=== PATIENT | male | born 1960 | race Caucasian/White ===

== ENCOUNTER 2022-08-08 08:49 | Inpatient (IN) | payer BC ==
[2022-08-08 09:31] LABS: Absolute Lymphocytes (CBC) 1.5 K/uL (0.7-4.9); Hematocrit 45.2 % (39.6-49.0); Lymphocytes % 26.5 % (15.3-44.8); MCV 74.1 fL (80-100); MPV 6.5 fL (7.6-11.3)
[2022-08-08 09:33] LABS: SARS-CoV-2 Antigen Rapid Res Negative (Negative)
[2022-08-08 09:34] LABS: Protime INR 1.06
--- NOTE | 2022-08-08 09:38 | RAD REPORT ---
EXAM DESCRIPTION: RAD - Chest Single View - 08/08/2022 9:16 am CLINICAL HISTORY: CHEST PAIN COMPARISON: None TECHNIQUE: AP portable chest image was obtained 08/08/2022 9:16 am . FINDINGS: Lungs are clear. Heart and vasculature are normal. No measurable pleural effusion and no p neumothorax. No acute bony abnormality seen. No acute aortic findings suspected. IMPRESSION: No acute cardiopulmonary process. Shallow inspiration, portable technique and large body habitus limit evaluation.
[2022-08-08 09:49] LABS: Albumin 3.4 g/dL (3.4-5.0); Bilirubin Direct 0.2 mg/dL (0-0.2); Bilirubin Total 0.5 mg/dL (0.2-1.0); Magnesium 1.7 mg/dL (1.8-2.4); Potassium 3.8 mmol/L (3.5-5.1); Protein, Total 6.8 g/dL (6.4-8.2)
[2022-08-08 09:53] LABS: Troponin High Sensitivity 2589.7 pg/mL (<58.9)
--- NOTE | 2022-08-08 10:13 | EDPHYS ---
Physician Documentation [facility] Name: Henrik Baker Age: 61 yrs Sex: Male : 1960 Arrival Date: 08/08/2022 Time: 08:52 Bed 18 Private MD: Oracoi Duncan ED Physician Anthony Winston HPI: 08/08 09:02 This 61 yrs old Male presents to ER via Ambulatory with complaints of Arm Pain, [facility] Shoulder Pain. 09:02 This is a 61 year old male with a history of htn, hypothyroidism, dm that presents to [facility] the ED with complaints of left sided chest pain, arm pain, and left scapular pain which awoke him around 430 am this morning. Patient states he then took 6 81 mg aspirin. Patient does not currently have pain. Pain is not reproduceable. . Historical: - Allergies: 08:57 NKDA; tw2 - Home Meds: :57 Tresiba FlexTouch U-100 100 unit/mL (3 mL) subcutaneous inpn [Active]; Novolog U-100 tw2 Insulin aspart 100 unit/mL Sub-Q soln [Active]; 09:00 amlodipine 10 mg tab 1 tab once daily [Active]; levothyroxine 100 mcg cap 1 cap once tw2 daily [Active]; doxazosin 4 mg oral tab 1 tab once daily [Active]; fenofibrate 145 mg oral 1 cap once daily [Active]; citalopram 40 mg tab 1 tab once daily [Active]; omeprazole 20 mg Oral cpDR 1 cap once daily [Active]; carvedilol 25 mg oral tab 1 tab 2 times per day [Active]; ubiquinol 100 mg once daily [Active]; - PMHx: 08:57 Hypertensive disorder; Hypothyroidism; Diabetes mellitus; tw2 - PSHx: 08:57 None; tw2 - Immunization history:: Client reports receiving the 2nd dose of the Covid vaccine. - Social history:: Smoking status: Patient denies any tobacco usage or history of. ROS: 09:02 Constitutional: Negative for fever, chills, and weight loss. [facility] 09:02 Cardiovascular: Positive for chest pain. 09:02 Respiratory: Positive for shortness of breath. 09:02 MS/extremity: Positive for pain. 09:02 All other systems are negative. Exam: 09:02 Constitutional: This is a well developed, well nourished patient who is awake, alert, jmm and in no acute distress. Head/Face: atraumatic. Eyes: EOMI, no conjunctival erythema appreciated ENT: Moist Mucus Membranes Neck: Trachea midline, Supple Chest/axilla: Normal chest wall appearance and motion. 09:02 Abdomen/GI: Non distended Back: Normal ROM Skin: General appearance color normal 09:02 Cardiovascular: Rate: normal, Rhythm: regular. 09:02 Respiratory: the patient does not display signs of respiratory distress, Respirations: normal, Breath sounds: are clear throughout. 09:02 Abdomen/GI: Inspection: obese Bowel sounds: normal. 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 09:02 Skin: Appearance: Color: normal in color. 09:02 Neuro: Orientation: is normal, Mentation: is normal, Memory: is normal. 09:02 Psych: Behavior/mood is pleasant, cooperative. 10:15 ECG was reviewed by the Attending Physician. [facility] Vital Signs: 08:55 BP 140 / 82; Pulse 85; Resp 19; Temp 97.7(TE); Pulse Ox 98% on R/A; Weight 165.56 kg tw2 (R); Height 6 ft. 1 in. (185.42 cm); Pain 3/10; 09:57 BP 127 / 64; Pulse 75; Resp 18; Pulse Ox 98% ; Pain 2/10; mb8 11:23 BP 122 / 44; Pulse 79; Resp 18; Pulse Ox 97% ; Pain 0/10; mb8 08:55 Body Mass Index 48.16 (165.56 kg, 185.42 cm) tw2 MDM: 09:[address] [facility] 10:10 Data reviewed: vital signs, nurses notes. Counseling: I had a detailed discussion with [facility] the patient and/or guardian regarding: the historical points, exam findings, and any diagnostic results supporting the discharge/admit diagnosis, lab results, radiology results, the need for further work-up and treatment in the hospital. ED course: I discussed the patient with Dr. Wyatt whom recommends heparin drip. Patient is currently pain free. Normotensive. I discussed the patient with Dr. Linder whom accepted the patient to his service. . 08/08 09:02 Order name: Basic Metabolic Panel; Complete Time: 09:56 [facility] 08/08 09:02 Order name: CBC with Diff; Complete Time: 09:40 [facility] 08/08 09:02 Order name: LFT's; Complete Time: 09:56 [facility] 08/08 09:02 Order name: Magnesium; Complete Time: 09:56 [facility] 08/08 09:02 Order name: NT PRO-BNP; Complete Time: 09:56 [facility] 08/08 09:02 Order name: PT-INR; Complete Time: 09:40 [facility] 08/08 09:02 Order name: Troponin HS; Complete Time: 09:56 [facility] 08/08 09:02 Order name: SARS RAPID; Complete Time: 09:40 [facility] 08/08 10:48 Order name: PTT, Activated Partial Thromb [facility] 08/08 11:56 Order name: Glucose, Ancillary Testing; Complete Time: 12:53 [facility] 08/08 12:18 Order name: CBC with Automated Diff; Complete Time: 12:53 [facility] 08/08 12:20 Order name: PTT, Activated Partial Thromb; Complete Time: 12:53 [facility] 08/08 12:38 Order name: Troponin High Sensitivity; Complete Time: 12:53 [facility] 08/08 12:38 Order name: Lipid Profile; Complete Time: 12:53 [facility] 08/08 09:02 Order name: XRAY Chest (1 view); Complete Time: 09:40 [facility] 08/08 09:02 Order name: EKG; Complete Time: 09:03 [facility] 08/08 09:02 Order name: Cardiac monitoring; Complete Time: 09: [facility] 08/08 09:02 Order name: EKG - Nurse/Tech; Complete Time: : [facility] 08/08 09:02 Order name: IV Saline Lock; Complete Time: : [facility] 08/08 09:02 Order name: Labs collected and sent; Complete Time: : [facility] 08/08 09:02 Order name: O2 Per Protocol; Complete Time: : [facility] 08/08 09:02 Order name: O2 Sat Monitoring; Complete Time: : [facility] 08/08 15:33 Order name: PTT, Activated Partial Thromb; Complete Time: 16:09 [facility] 08/08 16:03 Order name: Troponin High Sensitivity; Complete Time: 16:09 EDKS EC:15 Rate is 76 beats/min. Rhythm is regular. QRS [place] is Normal. GA interval is normal. QRS jmm interval is normal. QT interval is normal. Q waves are Present in lead aVL. T waves are Flattened in leads III, V1. No ST changes noted. Reviewed by me. Administered Medications: 10:01 Not Given (patient already tookk): Aspirin Chewable Tablet 324 mg PO once; 81 mg mb8 tablets x 4 10:34 Drug: Heparin ([place] Drip) 12 units/kg/hr - (HEParin 28192 units, D5W 500 ml) mb8 {Co-Signature: ko1 (Debra Shea RN).} Route: IV; Rate: calculated rate; Site: right antecubital; 10:35 Drug: Heparin ([place]-Bolus No thrombolytic) - HEParin 60 units/kg {Co-Signature: ko1 chetan (Debra Shea RN).} Route: IVP; Site: right antecubital; Disposition: 17:20 Co-signature as Attending Physician, Anthony Winston MD. rn Disposition Summary: 08/08/22 10:12 Hospitalization Ordered Hospitalization Status: Inpatient Admission [facility] Provider: Gallito Linder Location: Telemetry/MedSurg (Inpatient) [facility] Condition: Stable [facility] Problem: new jmm Symptoms: have improved jm Bed/Room Type: Standard [facility] Room Assignment: 424(08/08/22 15:05) eb Diagnosis - Non ST elevation CA [facility] Discharge Instructions: - Discharge Summary Sheet tw2 Forms: - Medication Reconciliation Form [facility] - SBAR form [facility] Signatures: Dispatcher [employer] EDMS Frederick Regan PA PA jmm Anthony Winston MD MD rn Wise, Tara, RN RN tw2 Whitney Conn Michael, RN RN mb8 Debra Shea RN ko1 Corrections: (The following items were deleted from the chart) 15:05 10:12 jmm eb
--- NOTE | 2022-08-08 10:13 | ER ---
Nurse's Notes [facility] Name: Henrik Baker Age: 61 yrs Sex: Male : 1960 Arrival Date: 08/08/2022 Time: 08:52 Bed 18 Private MD: Oracio Duncan Diagnosis: Non ST elevation [place] Presentation: 08/08 08:55 Chief complaint: Patient states: i woke up at 430. i sleep on my side and i couldn't tw2 sleep because of the pain off and on. its throbbing LEFT arm and shoulder blade and in my chest off \T\ on. i lay on it my arm would tingle. when the pain comes i could feel something in my chest when i take a deep breath. Coronavirus screen: At this time, the client does not indicate any symptoms associated with coronavirus-19. Ebola Screen: Patient denies travel to an Ebola-affected area in the 21 days before illness onset. Initial Sepsis Screen: Does the patient meet any 2 criteria? No. Patient's initial sepsis screen is negative. Does the patient have a suspected source of infection? No. Patient's initial sepsis screen is negative. Risk Assessment: Do you want to hurt yourself or someone else? Patient reports no desire to harm self or others. Onset of symptoms was August 08, 2022. 08:55 Method Of Arrival: Ambulatory tw2 08:55 Acuity: YOGI 3 tw2 08:59 Note provider in triage room at this time. tw2 Triage Assessment: 08:57 General: Appears in no apparent distress. obese, well groomed, Behavior is calm, tw2 cooperative, appropriate for age. Pain: Complains of pain in left scapular area and left arm. Neuro: Level of Consciousness is awake, alert, obeys commands, Oriented to person, place, time, situation. Respiratory: Airway is patent Respiratory effort is even, unlabored, Respiratory pattern is regular, symmetrical. Historical: - Allergies: 08:57 NKDA; tw2 - Home Meds: 08:57 Tresiba FlexTouch U-100 100 unit/mL (3 mL) subcutaneous inpn [Active]; Novolog U-100 tw2 Insulin aspart 100 unit/mL Sub-Q soln [Active]; 09:00 amlodipine 10 mg tab 1 tab once daily [Active]; levothyroxine 100 mcg cap 1 cap once tw2 daily [Active]; doxazosin 4 mg oral tab 1 tab once daily [Active]; fenofibrate 145 mg oral 1 cap once daily [Active]; citalopram 40 mg tab 1 tab once daily [Active]; omeprazole 20 mg Oral cpDR 1 cap once daily [Active]; carvedilol 25 mg oral tab 1 tab 2 times per day [Active]; ubiquinol 100 mg once daily [Active]; - PMHx: 08:57 Hypertensive disorder; Hypothyroidism; Diabetes mellitus; tw2 - PSHx: 08:57 None; tw2 - Immunization history:: Client reports receiving the 2nd dose of the Covid vaccine. - Social history:: Smoking status: Patient denies any tobacco usage or history of. Screenin:00 Abuse screen: Denies threats or abuse. Nutritional screening: No deficits noted. tw2 Tuberculosis screening: No symptoms or risk factors identified. Fall Risk None identified. Assessment: 09:20 Pain: Complains of pain in left scapular area Pain does not radiate. Pain currently is mb8 2 out of 10 on a pain scale. at worst was 3 out of 10 on a pain scale. Quality of pain is described as throbbing. Cardiovascular: Denies chest pain. Musculoskeletal: Reports pain in left scapular area. 09:52 Reassessment: MIKAYLA Mack notified of critical lab value: troponin. 09:57 Reassessment: Patient and/or family updated on plan of care and expected duration. Pain mb8 level reassessed. Patient is alert, oriented x 3, equal unlabored respirations, skin warm/dry/pink. 11:00 Reassessment: Patient and/or family updated on plan of care and expected duration. Pain mb8 level reassessed. Patient is alert, oriented x 3, equal unlabored respirations, skin warm/dry/pink. 11:24 Reassessment: Patient placed on hospital bed for comfort. mb8 Vital Signs: 08:55 BP 140 / 82; Pulse 85; Resp 19; Temp 97.7(TE); Pulse Ox 98% on R/A; Weight 165.56 kg tw2 (R); Height 6 ft. 1 in. (185.42 cm); Pain 3/10; 09:57 BP 127 / 64; Pulse 75; Resp 18; Pulse Ox 98% ; Pain 2/10; mb8 11:23 BP 122 / 44; Pulse 79; Resp 18; Pulse Ox 97% ; Pain 0/10; mb8 08:55 Body Mass Index 48.16 (165.56 kg, 185.42 cm) tw2 Vitals: 09:57 Cardiac Rhythm Assessment Sinus rhythm. mb8 11:23 Cardiac Rhythm Assessment Sinus rhythm. mb8 ED Course: 08:52 Patient arrived in ED. mr 08:52 Oracio Duncan DO is Private Physician. mr 08:54 Frederick Regan PA is PHCP. jmm 08:54 Anthony Winston MD is Attending Physician. jmm 08:57 Triage completed. tw2 09:00 Arm band placed on. tw2 09:04 Margarito Alfaro, MATTHEW is Primary Nurse. mb8 09:08 Placed in gown. Bed in low position. court monitor on. Pulse ox on. NIBP on. tw2 09:18 XRAY Chest (1 view) In Process Unspecified. EDMS 09:25 Inserted saline lock: 18 gauge in right antecubital area, using aseptic technique. mb8 Blood collected. 09:30 Client placed on continuous cardiac and pulse oximetry monitoring. NIBP monitoring mb8 applied. [address] monitor on. 09:31 No provider procedures requiring assistance completed. mb8 10:12 Gallito Linder is Hospitalizing Provider. tracy Administered Medications: 10:01 Not Given (patient already tookk): Aspirin Chewable Tablet 324 mg PO once; 81 mg mb8 tablets x 4 10:34 Drug: Heparin ([place] Drip) 12 units/kg/hr - (HEParin 43755 units, D5W 500 ml) mb8 {Co-Signature: asher (Debra Shea RN).} Route: IV; Rate: calculated rate; Site: right antecubital; 10:35 Drug: Heparin ([place]-Bolus No thrombolytic) - HEParin 60 units/kg {Co-Signature: asher benton (Debra Shea RN).} Route: IVP; Site: right antecubital; Medication: 09:08 VIS not applicable for this client. tw2 Outcome: 10:12 Decision to Hospitalize by Provider. jmm 16:17 Patient left the ED. mb8 Signatures: Dispatcher [employer] EDMS MickaFrederick enamorado PA PA jmm Rivera, Mary mr Brielle, Deysi, RN RN ss Brooke Gonzalez, RN RN tw2 Margarito Alfaro RN RN mb8 Debra Shea RN ko1
[2022-08-08] MEDS ORDERED: HEPARIN/D5W 25,000 UNIT/500 ML BAG IV ONE (10:36)
[2022-08-08] MEDS ORDERED: HEPARIN 5000 UNIT/ML 1 ML VIAL ONE (10:36)
[2022-08-08] MEDS ORDERED: HEPARIN/D5W 25,000 UNIT/500 ML BAG IV PRN (11:36)
[2022-08-08] MEDS ORDERED: NITROGLYCERIN 0.4 MG/TAB SL PRN (11:36)
[2022-08-08] MEDS ORDERED: INSULIN GLARGINE 100 UNIT/ML SQ SCH (11:36)
[2022-08-08] MEDS ORDERED: MORPHINE 4 MG/ML SYR IV PRN (11:36)
[2022-08-08] MEDS: INSULIN -REGULAR HUMAN 50 UNIT/0.5 ML ML SQ SCH ×3 (11:36→20:49)
--- NOTE | 2022-08-08 11:37 | P.HP ---
Certification for Inpatient Patient admitted to: Inpatient With expected LOS: >2 Midnights Practitioner: I am a practitioner with admitting privileges, knowledge of patient current condition, hospital course, and medical plan of care. Services: Services provided to patient in accordance with Admission requirements found in Title 42 Section 412.3 of the Code of Federal Regulations Patient History Date of Service: 08/08/22 Reason for admission: Chest pain History of Present Illness: 61-year-old gentleman with a history of hypertension, morbid obesity, diabetes mellitus presented to the emergency department with a complaint of sudden onset chest pain earlier this morning. Patient stated the chest pain started after returning from the bathroom back to bed around 4 AM, he could not sleep again because of the pain. He described an anterior dull chest pain, rated intensity as 2-3/10, felt weird, associated shortness of breath, no known aggravating or relieving factors. He denied any diaphoresis or palpitation or nausea associated with the chest pain. He denied any cough. EKG done in the emergency department shows sinus rhythm and nonspecific interventricular conduction delay, chest x-ray shows no acute disease. Troponin elevated to 2000. Patient was diagnosed with NSTEMI. Dr. Wyatt cardiology contacted who recommended hospitalization and treatment with full anticoagulation for NSTEMI. Patient was chest pain-free during my examination in the ED Allergies No Known Allergies Allergy (Unverified 08/08/22 10:44) - Past Medical/Surgical History -: Hypertension -: DM type II -: Morbid obesity - Family History Father -: Heart disease (At age 35) - Social History Smoking Status: Never smoker Alcohol use: No CD- Drugs: No Place of Residence: Home Review of Systems Other: Except as documented, all other systems reviewed and negative. Physical Examination - Physical Exam General: Alert, In no apparent distress, Oriented x3 HEENT: Atraumatic, PERRLA, Mucous membr. moist/pink, EOMI, Sclerae nonicteric Neck: Supple, JVD not distended Respiratory: Clear to auscultation bilaterally, Normal air movement Cardiovascular: No edema, Regular rate/rhythm, Normal S1 S2, No murmurs Capillary refill: <2 Seconds Gastrointestinal: Normal bowel sounds, Soft and benign, Non-distended, No tenderness Musculoskeletal: No swelling, No tenderness Integumentary: No rashes, No erythema, No cyanosis Neurological: Normal speech, Normal strength at 5/5 x4 extr, Cranial nerves 3-12 intact Lymphatics: No axilla or inguinal lymphadenopathy - Studies Laboratory Data (last 24 hrs) 08/08/22 09:23: PT 11.7, INR 1.06 08/08/22 09:23: WBC 5.60, Hgb 14.9, Hct 45.2, Plt Count 208 08/08/22 09:23: Sodium 136, Potassium 3.8, BUN 16, Creatinine 1.23, Glucose 311 H, Magnesium 1.7 L, Total Bilirubin 0.5, AST 29, ALT 25, Alkaline Phosphatase 78 Assessment and Plan - Problems (Diagnosis) (1) NSTEMI (non-ST elevated myocardial infarction) Current Visit: Yes Status: Acute (2) Hypertension Current Visit: Yes Status: Acute (3) Diabetes mellitus type 2 in obese Current Visit: Yes Status: Acute - Plan Admit patient to the medical floor. Continue to trend troponin Heparin drip per cardiology recommendation. Start aspirin Metoprolol 25 mg twice daily. Resume home antihypertensive Patient with severe hyperglycemia. Resume long-acting insulin. We will start with 75 units. Patient is on 100 units Tresiba at home. Insulin sliding scale. Cardiology consult Obtain echocardiogram. - Advance Directives Does patient have a Living Will: No Does patient have a Durable POA for Healthcare: No
[2022-08-08 11:41] VITALS: BMI 48.1
[2022-08-08] MEDS: INSULIN LISPRO 100 UNIT/1 ML SQ SCH ×2 (11:50→16:34)
[2022-08-08] MEDS ORDERED: D50W 25 GM/50 ML SYRINGE IV PRN (11:50)
[2022-08-08] MEDS ORDERED: GLUCAGON 1 MG/VIAL IM PRN (11:50)
[2022-08-08] MEDS ORDERED: INSULIN -REGULAR HUMAN 50 UNIT/0.5 ML ML ONE (12:03)
[2022-08-08 12:15] LABS: Absolute Lymphocytes (CBC) 1.3 K/uL (0.7-4.9); Hematocrit 45.7 % (39.6-49.0); Lymphocytes % 24.5 % (15.3-44.8); MPV 6.7 fL (7.6-11.3); RBC Red Blood Cell Count 6.17 M/uL (4.33-5.43)
[2022-08-08 12:38] LABS: Troponin High Sensitivity 10572.9 pg/mL (<58.9)
[2022-08-08] MEDS ORDERED: HEPARIN 10,000 UNIT/10 ML VIAL IV PRN (16:00)
[2022-08-08] MEDS: METOPROLOL TAR 50 MG TAB PO SCH (20:46)
--- NOTE | 2022-08-08 20:46 | CON ---
Date of Consultation: 08/08/2022 Reason For Consultation: Non ST-elevation myocardial infarction. History Of Present Illness: This is a 61-year-old male, who has history of hypertension, morbid obes ity, and diabetes for more than 20 years that is not controlled, had sudden chest pain, pressure-like that went to his shoulder and neck. Pain lasted for about an hour and was treated with some shortne ss of breath and then resolved. In the emergency room, EKG without acute specific abnormalities, bot the troponin was elevated and the patient was chest pain free. Past Medical History: 1.Hypertension. 2.Diabetes. 3.Morbid obesity. Medication: Refer reconciliation sheet for detailed list. Allergies: NO KNOWN DRUG ALLERGIES. Family History: No premature coronary artery disease or cancer. Social History: Does not smoke or drink. Does not use any drugs. Review of Systems: All systems reviewed and they were negative except as mentioned in the HPI. Physical Examination: Vital Signs: His temperature is 98.4, pulse 97, breathing at 17, blood pressure 139/70, and saturati ng 98% on room air. General: Pleasant middle-aged male, in no apparent distress. Head and Neck: Pupils are equal and reactive to light. Intact eye movements. Neck: No JVD. No cervical lymphadenopathy. Neck is supple. Thyroid is not enlarged. Lungs: Clear to auscultation bilaterally. No rhonchi, rales, or crackles. No accessory muscle use. Heart: Regular rate and rhythm. No extra sounds. Abdomen: Soft and nontender. Bowel sounds positive. No organomegaly. No masses or hernia. No rig idity or rebound. Extremities: No edema, clubbing, or cyanosis. Intact pulses. Skin: No rashes. Neurologic: Alert, awake, and oriented x3. No acute focal deficits appreciated. Investigations: Troponin is 10,572, BUN 16, and creatinine 1.23. Hemoglobin is 15.0. Assessment And Recommendation: 1.Non-ST elevation myocardial infarction. EKG without ST elevation findings and the patient is ches t pain-free at the present time. Continue IV heparin, baby aspirin daily. Keep n.p.o. past midnight for coronary angiogram tomorrow morning and start a low dose of beta nas, metoprolol 12.5 mg twi ce a day. 2.Hypertension. Start metoprolol as above. 3.Diabetes, uncontrolled. Encouraged to follow low-calorie diet, exercise, and please check lipids as well. SR/MODL Voice ID: [id number] Report ID: [id number]
[2022-08-09 05:48] LABS: Absolute Lymphocytes (CBC) 2.3 K/uL (0.7-4.9); Hematocrit 43.2 % (39.6-49.0); Lymphocytes % 28.4 % (15.3-44.8); MCV 73.8 fL (80-100); MPV 6.5 fL (7.6-11.3); RBC Red Blood Cell Count 5.86 M/uL (4.33-5.43)
[2022-08-09 06:08] LABS: Potassium 3.7 mmol/L (3.5-5.1)
[2022-08-09] MEDS: METOPROLOL TAR 50 MG TAB PO SCH ×2 (06:16→21:35)
[2022-08-09] MEDS: ASPIRIN EC 81 MG TAB PO SCH (06:19)
[2022-08-09] MEDS: INSULIN LISPRO 100 UNIT/1 ML SQ SCH ×3 (07:30→16:30)
[2022-08-09] MEDS: INSULIN -REGULAR HUMAN 50 UNIT/0.5 ML ML SQ SCH ×4 (07:30→22:02)
[2022-08-09] MEDS: INSULIN GLARGINE 100 UNIT/ML SQ SCH (08:28)
[2022-08-09] MEDS ORDERED: HEPA 1000U/500MLS 2,000 UNIT/1,000 ML BAG IV ONE (11:02)
[2022-08-09] MEDS ORDERED: LIDOCAINE 1% MPF 5 ML VIAL ONE (11:03)
[2022-08-09] MEDS ORDERED: MIDAZOLAM HCL 2 MG/2 ML INJ ONE (14:18)
[2022-08-09] MEDS ORDERED: FENTANYL CITR 100 MCG/2 ML ONE (14:18)
[2022-08-09] MEDS ORDERED: ATROPINE SULF 1 MG/10 ML SYR IV ONE (14:19)
[2022-08-09] MEDS ORDERED: VERAPAMIL HCL 10 MG/4 ML VIAL IV ONE (14:19)
[2022-08-09] MEDS ORDERED: HEPARIN 5000 UNIT/ML 1 ML VIAL ONE (14:19)
[2022-08-09] MEDS ORDERED: TICAGRELOR 90 MG TABLET PO ONE (14:19)
[2022-08-09] MEDS ORDERED: CLOPIDOGREL 75 MG TABLET ONE (14:19)
[2022-08-09] MEDS ORDERED: HEPARIN 10,000 UNIT/10 ML VIAL IV ONE (14:34)
[2022-08-09] MEDS ORDERED: ASPIRIN 325 MG TAB ONE (14:52)
--- NOTE | 2022-08-09 17:10 | P.PN ---
Subjective Date of Service: 08/09/22 Chief Complaint: Chest pain Patient denies any complaint. He used CPAP last night. Troponin trended up to 16,000 Physical Examination - Vital Signs Temperature: 97.3 F Blood Pressure: 114/67 Pulse: 67 Respirations: 18 Pulse Ox (%): 97 Assessment And Plan - Current Problems (Diagnosis) (1) NSTEMI (non-ST elevated myocardial infarction) Current Visit: Yes Status: Acute (2) Hypertension Current Visit: Yes Status: Acute (3) Diabetes mellitus type 2 in obese Current Visit: Yes Status: Acute - Plan Physical Exam General: Alert, In no apparent distress, Oriented x3 Neck: JVD not distended Respiratory: Clear to auscultation bilaterally, Normal air movement Cardiovascular: No edema, Regular rate/rhythm, Normal S1 S2, No murmurs Gastrointestinal: Normal bowel sounds, Soft and benign, Non-distended, No tenderness Integumentary: No rashes, No erythema, No cyanosis Neurological: No focal motor deficit. Plan: Patient planned for cardiac catheterization today. Aspirin, Metoprolol, Lipitor. Further management pending cardiac cath result. Patient is currently normotensive. Hold home antihypertensives for now. Patient with severe hyperglycemia. Semglee and insulin sliding scale for glucose management Cardiology consult Echocardiogram done and the result is pending.
--- NOTE | 2022-08-09 21:36 | PN ---
Date of Progress Note: 08/09/2022 Subjective: Seen by bedside, doing clinically well. No further chest pain. Review of Systems: No chest pain, orthopnea, or cough. No nausea, vomiting, or diarrhea. No abdominal pain. No dysuri a, polyuria, or urinary urgency. All other systems reviewed and they were negative. Physical Examination: Vital Signs: Temperature is 97.4, pulse 68, breathing at 18, blood pressure 114/58, saturating 97% o n room air. General: Pleasant middle-aged male, in no apparent distress. Head and Neck: Pupils are equal and reactive to light. Intact eye movements. No JVD. No cervical lymphadenopathy. Neck: Supple. Thyroid is not enlarged. Lungs: Clear to auscultation bilaterally. No rhonchi, rales, or crackles. No accessory muscle use. Heart: Regular rate and rhythm. No extra sounds. Abdomen: Soft, nontender. Bowel sounds positive. No organomegaly. No masses or hernia. No rigidi ty or rebound. Extremities: No edema, clubbing, or cyanosis. Intact pulses. Skin: No rashes. Neurologic: Alert, awake, and oriented x3. No acute focal deficits appreciated. Investigations: Creatinine 1.16. Assessment And Recommendations: 1.[id number] myocardial infarction. NPO for a coronary angiogram today and continue aspirin a nd high-dose statin and we will obtain an echocardiogram. 2.Diabetes, uncontrolled and he is obese and the patient was counseled for low-calorie diet and low-carbohydrate diet. 3.Hypertension. Blood pressure is controlled. SR/MODL Voice ID: [id number] Report ID: [id number]
[2022-08-09 22:16] VITALS: O2SAT 98
--- NOTE | 2022-08-10 03:33 | OP ---
Date of Procedure: 08/09/2022 Surgeon: KRISTINE WHITE Procedure Performed: 1.Selective angiogram. 2.PCI of severe mid LAD stenosis, which was the culprit for the AL, used 4.0 x 60 mm Synergy drug-el uting stent overlapped distally due to the tapering of the artery, used a 3.0 x 12 mm Synergy drug-el uting stent. Complications: None. Bleeding: Less than 20 mL. Anesthesia: Total sedation time was 50 minutes. Indications: Non-ST elevation myocardial infarction. Access: Right radial artery 6-[place] closed with TR band. Description Of Procedure: After risks, benefits, and alternatives were explained, the patient agreed to the procedure and signed informed consent. The patient was brought into the cardiac catheterizat ion laboratory, prepped and draped in usual sterile fashion. Then we accessed right radial artery us ing pediatric micropuncture kit, placed a 6-[place] slender sheath and took a 5-[place] Bliss 4-[address] into the aortic root, engaged left main, right coronary artery, took standard views and then gave systemic heparin to assure HCT level above 250 throughout the procedure and gave 180 mg of Brilinta and 325 mg aspirin and took a 6-[place] EBU 3.5 guide into the aortic root, engaged left main and then took short run-through wire into the left main and then the LAD across the area of stenosis. Area w as prepped and expanded very well using a 3.5 balloon and then placed a 4.0 x 60 mm Synergy drug-elut ing stent across the area of stenosis with good expansion and 0% residual restenosis; however, the ve ssels tapered down after the stenosis significantly, so I placed another 3.0 x 12 mm Synergy drug-elu ting stent overlap with the first one. Overlapped area was post dilated to 4.0 mm with excellent ang iographic results, then removed the wire and the guide and sheath, placed TR band with good hemostasi s. Findings: 1.Left main; large and normal. 2.LAD, very large vessel. Proximal segments with luminal irregularity. Then after diagonal 1 branc h has focal 40% stenosis, then after diagonal 2 branch has a focal 99% stenosis, which is the culprit status post successful PCI as outlined above with 0% residual stenosis and resultant FOREST-3 flow, di agonal 1 branch has mid 60% to 70% stenosis and the diagonal 2 branch is also a good-sized vessel wit h luminal irregularities. 3.The left circumflex is also a large vessel with mid 80% stenosis. 4.RCA, large and dominant, mid diffuse 50% stenosis. Conclusion: 1.Severe mid LAD stenosis, which is the culprit for the AL status post successful PCI as above. 2.Severe mid left circumflex stenosis. We will plan to stage the PCI in 4-6 weeks. Otherwise, the patient has moderate nonobstructive coronary artery disease. Plan: 1.Brilinta, aspirin, and high-dose statin. 2.Staged PCI of left circumflex in 4-6 weeks. /CYDNEY Voice ID: [id number] Report ID: [id number]
[2022-08-10 03:34] LABS: MPV 6.5 fL (7.6-11.3)
[2022-08-10 03:49] LABS: Magnesium 1.9 mg/dL (1.8-2.4); Potassium 3.7 mmol/L (3.5-5.1)
[2022-08-10] MEDS ORDERED: LEVOTHYROXINE SOD 0.1 MG TAB PO SCH (06:30)
[2022-08-10 06:34] VITALS: BP 162/72
[2022-08-10] MEDS: INSULIN LISPRO 100 UNIT/1 ML SQ SCH (07:30)
[2022-08-10] MEDS: TICAGRELOR 90 MG TABLET PO SCH ×2 (08:00→09:01)
--- NOTE | 2022-08-10 08:55 | ECHO ---
HEIGHT: 6 ft 1 in WEIGHT: 364 lb 15.957 oz DATE OF STUDY: 08/09/[address]: Gallito Linder MD 2-DIMENSIONAL: YES M.MODE: YES DOPPLER: YES COLOR FLOW: YES TDS: YES PORTABLE: YES DEFINITY: NO BUBBLE STUDY: NO DIAGNOSIS: NSTEMI CARDIAC HISTORY: CATHERIZATION: NO SURGERY: NO PROSTHETIC VALVE: NO PACEMAKER: NO MEASUREMENTS (cm) DIASTOLIC (NORMALS) SYSTOLIC (NORMALS) IVSd (0.6-1.2) LA Diam (1.9-4.0) LVEF 55-60% LVIDd (3.5-5.7) LVIDs (2.0-3.5) %FS % LVPWd (0.6-1.2) Ao Diam (2.0-3.7) 2 DIMENSIONAL ASSESSMENT: RIGHT ATRIUM: NORMAL LEFT ATRIUM: NORMAL RIGHT VENTRICLE: NORMAL LEFT VENTRICLE: NORMAL TRICUSPID VALVE: NORMAL MITRAL VALVE: NORMAL PULMONIC VALVE: NORMAL AORTIC VALVE: NORMAL PERICARDIAL EFFUSION: NONE AORTIC ROOT: NORMAL LEFT VENTRICULAR WALL MOTION: NORMAL. DOPPLER/COLOR FLOW: NORMAL. COMMENTS: TECHNICALLY DIFFICULT STUDY. GROSSLY NORMAL LEFT VENTRICULAR SIZE AND FUNCTION. NORMAL EJECTION FRACTION. NO EFFUSION. TECHNOLOGIST: BIPIN CORCORAN
[2022-08-10] MEDS ORDERED: HOME MED 1 EA UNK (Citalopram Hydrobromide [Citalopram Hbr] 40 MG Tablet) PO SCH (09:00)
[2022-08-10] MEDS ORDERED: HOME MED 1 EA UNK (Omeprazole [Omeprazole] 20 MG Capsule.Dr) PO SCH (09:00)
[2022-08-10] MEDS: ASPIRIN EC 81 MG TAB PO SCH (09:00)
[2022-08-10] MEDS: INSULIN GLARGINE 100 UNIT/ML SQ SCH (09:00)
[2022-08-10] MEDS ORDERED: PANTOPRAZOLE 40MG TABLET PO SCH (09:00)
[2022-08-10] MEDS ORDERED: CITALOPRAM 10 MG TABLET PO SCH (09:00)
[2022-08-10] MEDS: METOPROLOL TAR 50 MG TAB PO SCH (09:00)
[2022-08-10] MEDS ORDERED: FENOFIBRATE 160 MG TAB PO SCH (09:00)
[2022-08-10] MEDS: INSULIN -REGULAR HUMAN 50 UNIT/0.5 ML ML SQ SCH (09:01)
[2022-08-10 09:47] VITALS: TEMP 97.3
--- NOTE | 2022-08-10 20:46 | P.DS ---
Admission Date: 08/08/22 Discharge Date: 08/10/22 Disposition: ROUTINE DISCHARGE Discharge Condition: GOOD Reason for Admission: Chest pain Consultations: Cardiology - Dr. Wyatt Brief History of Present Illness: 61yo M, PMH: HTN, morbid obesity, DM2 Presented to ED with suddent onset of chest pain after returning from bathroom. EKG without ST-T wave changes and initial troponin was elevated to 2000. Car diology consulted in ED for NSTEMI Problem List NSTEMI, secondary to CAD HTN DM2, non-insulin dependent GERD Hospital Course: Patient presented with chest pain, found to have NSTEMI and underwent cardiac catheterization with stent placement in his LAD. He was also noted to have an additional area of coronary artery stenosis (mid l eft circumflex), which he will need a subsequent stent placed in ~4-6 weeks. New prescriptions: Brilinta 90mg twice daily Aspirin 81mg daily Atorvastatin 80mg daily continue previous home medications Follow up: Dr. Wyatt - call his office today/tomorrow to schedule appointment for next week. PCP within 1 week. Vital Signs/Physical Exam: Temp Pulse Resp BP Pulse Ox 97.3 F 68 18 162/72 H 98 08/10/22 08:00 08/10/22 09:00 08/10/22 08:00 08/10/22 09:00 08/10/22 08:00 General: Alert, In no apparent distress HEENT: Mucous membr. moist/pink, Sclerae nonicteric Neck: Supple, No LAD Respiratory: Clear to auscultation bilaterally, Normal air movement Cardiovascular: No edema, Regular rate/rhythm Gastrointestinal: Soft and benign, Non-distended, No tenderness Musculoskeletal: No contractures, No erythema Integumentary: No significant lesion, No tenderness/swelling Neurological: Normal speech, Normal strength at 5/5 x4 extr, Normal affect Laboratory Data at Discharge: WBC Cancelled 08/10/22 11:30 Hgb Cancelled 08/10/22 11:30 Hct Cancelled 08/10/22 11:30 Plt Count Cancelled 08/10/22 11:30 PT 11.7 SECONDS (9.5-12.5) 08/08/22 09:23 INR 1.06 08/08/22 09:23 APTT 45.8 SECONDS (24.3-36.9) H 08/09/22 11:33 Sodium 137 mmol/L (136-145) 08/10/22 03:04 Potassium 3.7 mmol/L (3.5-5.1) 08/10/22 03:04 BUN 21 mg/dL (7-18) H 08/10/22 03:04 Creatinine 1.25 mg/dL (0.55-1.3) 08/10/22 03:04 Glucose 255 mg/dL (74-106) H 08/10/22 03:04 Magnesium 1.9 mg/dL (1.8-2.4) 08/10/22 03:04 Total Bilirubin 0.5 mg/dL (0.2-1.0) 08/08/22 09:23 AST 29 U/L (15-37) 08/08/22 09:23 ALT 25 U/L (12-78) 08/08/22 09:23 Alkaline Phosphatase 78 U/L (45-117) 08/08/22 09:23 Triglycerides 106 mg/dL (<150) 08/08/22 11:59 Cholesterol 133 mg/dL (<200) 08/08/22 11:59 HDL Cholesterol 38 mg/dL (40-60) L 08/08/22 11:59 Cholesterol/HDL Ratio 3.50 08/08/22 11:59 Home Medications: Amlodipine [Norvasc*] 10 mg PO DAILY 08/08/22 Carvedilol [Coreg] 50 mg PO BID 08/08/22 Citalopram Hydrobromide [Citalopram HBr] 40 mg PO DAILY 08/08/22 Doxazosin [Cardura*] 4 mg PO BID 08/08/22 Fenofibrate [Tricor*] 145 mg PO DAILY 08/08/22 Levothyroxine [Synthroid*] 0.1 mg PO DAILY 08/08/22 Omeprazole 20 mg PO DAILY 08/08/22 Aspirin [Aspirin EC 81 MG] 81 mg PO DAILY 30 Days #30 tab 08/10/22 Atorvastatin Calcium [Lipitor] 80 mg PO BEDTIME 30 Days #30 tab 08/10/22 Ticagrelor [Brilinta*] 90 mg PO BID 30 Days #60 tab 08/10/22 New Medications: Aspirin [Aspirin EC 81 MG] 81 mg PO DAILY 30 Days #30 tab Ticagrelor [Brilinta*] 90 mg PO BID 30 Days #60 tab Atorvastatin Calcium [Lipitor] 80 mg PO BEDTIME 30 Days #30 tab Physician Discharge Instructions: Patient presented with chest pain, found to have NSTEMI and underwent cardiac catheterization with stent placement in his LAD. He was also noted to have an additional area of coronary artery stenosis (mid left circumflex), which he will need a subsequent stent placed in ~4-6 weeks. New prescriptions: Brilinta 90mg twice daily Aspirin 81mg daily Atorvastatin 80mg daily continue previous home medications Follow up: Dr. Wyatt - call his office today/tomorrow to schedule appointment for next week. PCP within 1 week. Followup: Oracio Duncan DO [Primary Care Provider] - 1 Week (PCP- call to schedule an appointment) Arvin Wyatt MD [ACTIVE - CAN ADMIT] - (forensic sergeant- call to schedule an appointment) Time spent managing pt's care (in minutes): 45
== END 2022-08-10 10:52 | disposition home or self-care (01) | DRG 247 ==
LOC: ER 08:49 → ERHOLD 11:21 → 4TH 15:32
PROVIDERS: ADMIT Internal Medicine; ATTEND Hospitalist
PROC: 027035Z Dilation of Coronary Artery, One Artery with Two Drug-eluting Intraluminal Devices, Percutaneous Approach (ICD-10-PCS; principal; 2022-08-09)
PROC: 4A023N7 Measurement of Cardiac Sampling and Pressure, Left Heart, Percutaneous Approach (ICD-10-PCS; 2022-08-09)
PROC: B2111ZZ Fluoroscopy of Multiple Coronary Arteries using Low Osmolar Contrast (ICD-10-PCS; 2022-08-09)
DX: I21.4 Non-ST elevation (NSTEMI) myocardial infarction (principal); Z68.42 Body mass index [BMI] 45.0-49.9, adult; E66.01 Morbid (severe) obesity due to excess calories; E11.65 Type 2 diabetes mellitus with hyperglycemia; I25.10 Atherosclerotic heart disease of native coronary artery without angina pectoris; I10 Essential (primary) hypertension; K21.9 Gastro-esophageal reflux disease without esophagitis; E03.9 Hypothyroidism, unspecified; Z79.4 Long term (current) use of insulin; Z79.82 Long term (current) use of aspirin; Z79.01 Long term (current) use of anticoagulants; Z79.899 Other long term (current) drug therapy; Z79.890 Hormone replacement therapy; Z20.822 Contact with and (suspected) exposure to COVID-19
CPT/HCPCS: 36415; 71045; 80048; 80061; 80076; 82947; 83735; 83880; 84484; 85025; 85049; 85347; 85610; 85730; 87811; 92928; 93005; 93306; 93454; 96374; 99285; C1725; C1893; J1644; J1815; J2001; J2250; J3010; Q9967